=== PATIENT | male | born 1970 | race African-American/Black ===

== ENCOUNTER 2018-04-21 09:14 | Emergency (ER) | payer OTHER, BC ==
[2018-04-21 09:20] VITALS: BP 167/101
--- NOTE | 2018-04-21 09:54 | ER Document Report ---
ED Neuro Symptoms/Deficit - General Chief Complaint: Numbness of Face Stated Complaint: NUMBNESS Time Seen by Provider: 04/21/18 09:42 Mode of Arrival: Ambulatory Information source: Patient, [facility] Records Notes: 47-year-old male patient reports waking up this morning, and noticing when he was brushing his teeth and spitting the right side of his face felt funny. While he was at work his boss noted that his face was becoming twisted. He does notice now that he cannot close the right eye quite as well as normal. He has a little trouble drinking liquids now with some running up the right side of the mouth, and he has a numbness to the right face. He had a similar episode with a left-sided Steele's palsy on 04/30/2015 when he was seen here at the emergency room. At that time his blood pressure was about 160 systolic, and he had not taken his blood pressure medication that morning. Today his blood pressure is about the same as it was on that visit 3 years ago, and again he had not taken his blood pressure medication this morning. He does notice that he has had a little bit of a right frontal temporal sinus type headache but is not noted a headache behind the ear on the right. TRAVEL OUTSIDE OF THE [place] 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 Lives with: Family Family History: Reviewed & Not Pertinent Patient has suicidal ideation: No Patient has homicidal ideation: No - Past Medical History Cardiac Medical History: Reports: Hx Hypertension Pulmonary Medical History: Reports: None EENT Medical History: Reports: None Neurological Medical History: Reports: Other - Steele's palsy left-sided April 2015 Endocrine Medical History: Reports: None Renal/ Medical History: Reports: None GI Medical History: Reports: Hx Gastroesophageal Reflux Disease Psychiatric Medical History: Reports: None Past Surgical History: Reports: Hx Orthopedic Surgery - Immunizations Hx Diphtheria, Pertussis, Tetanus Vaccination: Yes Review of Systems - Review of Systems Constitutional: No symptoms reported EENT: Sinus pressure Cardiovascular: No symptoms reported Respiratory: No symptoms reported Gastrointestinal: No symptoms reported Musculoskeletal: No symptoms reported Skin: No symptoms reported Hematologic/Lymphatic: No symptoms reported Neurological/Psychological: See HPI Physical Exam - Vital signs Vitals: Temp Pulse Resp BP Pulse Ox 98.7 F 90 16 167/101 H 97 18 09:18 04/21/18 09:18 04/21/18 09:18 04/21/18 09:18 04/21/18 09:18 Interpretation: Hypertensive - General General appearance: Appears well, Alert In distress: None - HEENT Head: Normocephalic, Atraumatic Eyes: Normal - There is some weakness to the right facial muscles with some right lid lag and unable to fully close the right eye Cornea: Normal Extraocular movements intact: Yes Pupils: PERRL Neck: Normal - Respiratory Respiratory status: No respiratory distress - Cardiovascular Rhythm: Regular - Abdominal Inspection: Normal - Back Back: Normal - Extremities General upper extremity: Normal inspection General lower extremity: Normal inspection - Neurological Cognition: Normal Cranial nerves: Facial palsy, Forehead sparing, Sensory deficit, Other - Right upper lid does not fully close and the muscles are little weaker than the left. He is able to wrinkle his forehead raises eyebrows. His right face is nearly flaccid. There is decreased sensation to the right face. - Psychological Associated symptoms: Normal affect, Normal mood - Skin Skin Temperature: Warm Skin Moisture: Dry Skin Color: Normal Course - Vital Signs Vital signs: Temp Pulse Resp BP Pulse Ox 98.7 F 90 16 167/101 H 97 18 09:18 04/21/18 09:18 04/21/18 09:18 04/21/18 09:18 04/21/18 09:18 Discharge - Discharge Clinical Impression: Steele's palsy Hypertension Qualifiers: Hypertension type: essential hypertension Qualified Code(s): I10 - Essential (primary) hypertension Condition: Stable Disposition: HOME, SELF-CARE Additional Instructions: [place]' Palsy You have been diagnosed as having Steele's Palsy -- a paralysis of certain muscles of the face. It's caused by a temporary paralysis of the nerve which controls the muscles. The cause is unknown, but it's thought to be caused by a virus in most cases. The physician's exam shows that this is NOT a stroke. Steele's Palsy usually gets better by itself. There is no cure. Sometimes cortisone-type medication is given to decrease nerve swelling. This problem is usually temporary, lasting about three weeks. During that time, you must protect the eye from injury (because the eyelid muscles often do not cover it). Ointment or a patch may be necessary. Be sure to follow up as instructed, and call the doctor at once if new symptoms arise. Report any eye pain, decreasing vision or double vision, or any numbness or weakness outside the face area. Be sure to take your morning blood pressure medication dose when you go home. Take the medications as prescribed to reduce the risk of incomplete resolution of your symptoms. You will take prednisone 60 mg daily for 10 days, and valacyclovir 1000 mg daily for 5 days. Use eye wetting solutions when you become unable to completely blank on the right side. Use moisturizing ointment such as Lacri-Lube at bedtime and take the eye closed when you sleep. Follow-up with your primary care provider if not improving. RETURN TO THE EMERGENCY ROOM IF ANY NEW OR WORSENING SYMPTOMS. Prescriptions: Prednisone [Deltasone 20 mg Tablet] 60 mg PO DAILY #30 tablet Valacyclovir HCl [Valacyclovir] 1,000 mg PO DAILY #5 tablet
== END 2018-04-21 09:58 | disposition home or self-care (01) ==
LOC: ER 09:14
DX: G51.0 Bell's palsy (principal); I10 Essential (primary) hypertension
CPT/HCPCS: 99283

== ENCOUNTER 2018-06-29 12:42 | Emergency (ER) | payer OTHER, BC ==
[2018-06-29 12:52] VITALS: BP 163/102
--- NOTE | 2018-06-29 13:47 | ER Document Report ---
HPI - HPI Time Seen by Provider: 06/29/18 13:25 Pain Level: 3 Notes: Patient is a 47-year-old male with no significant past medical history presents the emergency department complaining of nasal congestion/discharge, postnasal drip, and an occasional dry nonproductive cough over the last 5-6 days. He has been using some [id number] meds with minimal relief. He is eating and drinking without difficulty. Denies drug allergies. No other concerns or complaints. Denies any headache, fever, neck pain, sore throat, chest pain, palpitations, syncope, shortness of breath, wheeze, dyspnea, abdominal pain, nausea/vomiting/diarrhea, urinary retention, dysuria, hematuria, or rash. - ROS Systems Reviewed and Negative: Yes All other systems reviewed and negative Past Medical History - Social History Smoking Status: Never Smoker Chew tobacco use (# tins/day): No Frequency of alcohol use: Social Drug Abuse: None Family History: Reviewed & Not Pertinent Patient has suicidal ideation: No Patient has homicidal ideation: No - Past Medical History Cardiac Medical History: Reports: Hx Hypertension Renal/ Medical History: Denies: Hx Peritoneal Dialysis GI Medical History: Reports: Hx Gastroesophageal Reflux Disease Past Surgical History: Reports: Hx Orthopedic Surgery - Immunizations Hx Diphtheria, Pertussis, Tetanus Vaccination: Yes Vertical Provider Document - CONSTITUTIONAL Agree With Documented VS: Yes Notes: PHYSICAL EXAMINATION: GENERAL: Well-appearing, well-nourished and in no acute distress. A&Ox4. Answers questions appropriately. Moves comfortably w/o notable distress HEAD: Atraumatic, normocephalic. EYES: Pupils equal round and reactive to light, extraocular movements intact, sclera anicteric, conjunctiva are normal. ENT: EAC clear b/l. TM's intact b/l without erythema, fluid, or perforation. Nares patent and with clear discharge. oropharynx no erythema without exudates. No tonsilar hypertrophy without erythema or exudate. No palatine shift. Uvula midline. No tongue protrusion. No drooling, hoarseness, or airway compromise. Moist mucous membranes. No sinus tenderness. NECK: Normal range of motion, supple without lymphadenopathy. No rigidity/meningismus. LUNGS: Breath sounds clear to auscultation bilaterally and equal. No wheezes rales or rhonchi. No retractions HEART: Regular rate and rhythm without murmurs, rubs, gallops. NEUROLOGICAL: Normal speech, normal gait. PSYCH: Normal mood, normal affect. SKIN: Warm, Dry, normal turgor, no rashes or lesions noted. - INFECTION CONTROL TRAVEL OUTSIDE OF THE [place] IN LAST 30 DAYS: No Course - Re-evaluation Re-evalutation: 06/29/18 13:44 Patient is an afebrile, well-hydrated, 47-year-old male who presents to the ED with acute URI, suspect viral. Vitals are acceptable. PE is otherwise unremarkable. No labs or imaging warranted at this time based on H&P. Patient has no significant cardiopulmonary or immunocompromised medical conditions. Patient's lungs are clear to auscultation bilaterally without tachycardia, hypoxia, or tachypnea. Patient is tolerating p.o. without any difficulties. Low suspicion for any meningitis, sepsis, peritonsillar/pharyngeal abscess, respiratory compromise, severe dehydration, or other emergent systemic condition at this time. Patient is aware this condition can change from initial presentation and he needs to monitor symptoms closely. Conservative measures otherwise for symptoms. Recheck with your PCM in 3-5 days. Return to the ED with any worsening/concerning symptoms otherwise as reviewed in discharge. Patient is in agreement. - Vital Signs Vital signs: Temp Pulse Resp BP Pulse Ox 98.5 F 86 16 163/102 H 97 06/29/18 12:48 06/29/18 12:48 06/29/18 12:48 06/29/18 12:48 06/29/18 12:48 Discharge - Discharge Clinical Impression: Acute URI Condition: Stable Disposition: HOME, SELF-CARE Instructions: Upper Respiratory Illness ([facility]) Additional Instructions: Maintain adequate fluid intake Take meds as directed tylenol/ibuprofen as needed over the counter cold medication as needed for symptoms Humidified air may help Wash your hands regularly Wear a mask when coughing F/u: with your PCM in 3-5 days for a recheck Return to the ED with any fever, worsening pain, chest pain, palpitations, syncope, worsening REA, neck pain/stiffness, shortness of breath, wheezing, drooling, trouble swallowing/breathing, abdominal pain, n/v/d, rash, or worsening/concerning symptoms otherwise. Prescriptions: Cetirizine HCl [Zyrtec 10 mg Tablet] 1 tab PO DAILY #10 tablet Oxymetazoline HCl [Afrin] 1 spray NS BID #1 bottle Forms: Elevated Blood Pressure Referrals: [facility] [Provider Group] - Follow up as needed
== END 2018-06-29 13:54 | disposition home or self-care (01) ==
LOC: ER 12:42
DX: J06.9 Acute upper respiratory infection, unspecified (principal); R09.81 Nasal congestion; R09.82 Postnasal drip; R05 Cough; I10 Essential (primary) hypertension
CPT/HCPCS: 99283